=== PATIENT | female | born 1960 | race Two or more races ===

== ENCOUNTER → 2019-12-30 | Outpatient (CLI) | payer OTHER ==
--- NOTE | 2019-12-30 10:56 | XR ---
EXAMINATION TYPE: XR chest 2V DATE OF EXAM: 12/30/2019 COMPARISON: 12/04/2019 HISTORY: Cough and shortness of breath for 6 weeks TECHNIQUE: Frontal and lateral views of the chest are obtained. FINDINGS: Improving right midlung opacities in comparison to the prior. Cavitary component is again suspected. Pulmonary hyperinflation of underlying COPD. Remainder the lungs are well aerated. Cardiom ediastinal silhouette is within normal limits. Osseous structures are intact. IMPRESSION: Improving multifocal cavitary consolidations of the right midlung in comparison the prio r of 12/04/2019.
== END | disposition home or self-care (01) ==
LOC: RADXRYALE 10:33
PROVIDERS: ATTEND Internal Medicine
DX: J18.1 Lobar pneumonia, unspecified organism (principal)
CPT/HCPCS: 71046

== ENCOUNTER → 2020-03-17 | Outpatient (CLI) | payer OTHER ==
--- NOTE | 2020-03-17 14:27 | XR ---
EXAMINATION TYPE: XR chest 2V DATE OF EXAM: 03/17/2020 COMPARISON: 12/30/2019 HISTORY: Follow-up for right lung mass versus resolving pneumonia after antibiotic therapy TECHNIQUE: Frontal and lateral views of the chest are obtained. FINDINGS: There is near complete resolution of the previously seen right midlung opacity. There is a focal linear area may represent scarring or atelectasis. Large hiatal hernia seen. Pulmonary hyperin flation compatible with underlying COPD. Mild degenerative change of the spine. IMPRESSION: Near complete resolution of the right midlung opacity with very small focal linear area remaining, likely atelectasis or scarring. Large hiatal hernia.
== END | disposition home or self-care (01) ==
LOC: RADXRYALE 13:09
PROVIDERS: ATTEND Internal Medicine
DX: R91.8 Other nonspecific abnormal finding of lung field (principal)
CPT/HCPCS: 71046